=== PATIENT | male | born 1995 | race Asian ===

== ENCOUNTER 2019-02-09 23:51 | Emergency (ER) | payer OTHER ==
[~2019-02-09] VITALS: Ht 180.3 cm; Wt 81.6 kg
[2019-02-10 01:20] LABS: PLATELET COUNT 209 K/uL (142-355)
[2019-02-10 01:22] LABS: POTASSIUM 3.7 mmol/L (3.6-5.2); SODIUM 140 mmol/L (136-145)
[2019-02-10 03:10] VITALS: BP 109/65; TEMP 98.2
== END 2019-02-10 03:10 | disposition home or self-care (01) ==
LOC: ED 23:51
PROVIDERS: Family Medicine
DX: K29.70 Gastritis, unspecified, without bleeding (principal); R07.89 Other chest pain
CPT/HCPCS: 36415; 80053; 80307; 81000; 82550; 84484; 85027; 93005; 99282; 99283

== ENCOUNTER 2019-05-19 18:30 | Emergency (ER) | payer OTHER ==
[~2019-05-19] VITALS: Ht 180.3 cm; Wt 81.6 kg
[2019-05-19 20:37] VITALS: BP 118/81; TEMP 98.1
== END 2019-05-19 20:38 | disposition home or self-care (01) ==
LOC: ED 18:30
PROC: 0CQ00ZZ Repair Upper Lip, Open Approach (ICD-10-PCS; principal; 2019-05-19)
DX: S01.511A Laceration without foreign body of lip, initial encounter (principal); S00.532A Contusion of oral cavity, initial encounter; W22.8XXA Striking against or struck by other objects, initial encounter; V29.3XXA Motorcycle rider (driver) (passenger) injured in unspecified nontraffic accident, initial encounter
CPT/HCPCS: 90471; 99283; J7040

== ENCOUNTER 2019-06-01 03:48 | Emergency (ER) | payer OTHER ==
[~2019-06-01] VITALS: Ht 180.3 cm; Wt 81.6 kg
[2019-06-01 04:00] VITALS: BP 114/68; TEMP 97.9
== END 2019-06-01 04:30 | disposition home or self-care (01) ==
LOC: ED 03:48
DX: Z48.02 Encounter for removal of sutures (principal)